=== PATIENT | female | born 1950 | race Two or more races ===

== ENCOUNTER 2018-04-07 07:49 | Outpatient (CLI) | payer OTHER ==
[~2018-04-07 07:49] MED LIST: AMLODIPINE BESYL5 MG PO; AVAPRO300 MG PO; CARVEDILOL3.125 MG; CATAFLAM50 MG PO; CLOPIDOGREL BIS75 MG PO; Coreg PO; FLONASE16 GM NS; HYDRALAZINE HCL25 MG PO; LIPITOR40 MG PO; TESSALON PERLE100 M1 PO; ZITHROMAX500 MG PO; ZYRTEC10 MG PO
== END 2018-04-07 08:07 | disposition home or self-care (01) ==
LOC: NUCLEAR 07:49
DX: I20.9 Angina pectoris, unspecified (principal)
CPT/HCPCS: 78452; 93017; A9500; J0153

== ENCOUNTER 2020-10-24 15:47 | Emergency (ER) | payer OTHER ==
[~2020-10-24] VITALS: Ht 152.4 cm; Wt 83.0 kg
[2020-10-24] MEDS ORDERED: PEPCID AC20 MG PO (20:32)
[2020-10-24] MEDS ORDERED: CARAFATE1 GM PO (20:32)
== END 2020-10-24 20:42 | disposition home or self-care (01) ==
LOC: ER 15:47
DX: K29.70 Gastritis, unspecified, without bleeding (principal)

== ENCOUNTER 2022-03-13 09:40 | Outpatient (CLI) | payer OTHER ==
[~2022-03-13 09:40] MED LIST changes: +CARAFATE1 GM PO; +PEPCID AC20 MG PO
== END 2022-03-13 10:05 | disposition home or self-care (01) ==
LOC: RAD 09:40
PROVIDERS: ATTEND Physical Medicine & Rehabilitation
DX: R07.81 Pleurodynia (principal); M25.532 Pain in left wrist; G89.21 Chronic pain due to trauma

== ENCOUNTER 2023-01-05 11:15 | Emergency (ER) | payer OTHER ==
[~2023-01-05] VITALS: Ht 160 cm; Wt 107.5 kg
[2023-01-05] MEDS ORDERED: DULCOLAX5 MG PO (17:49)
== END 2023-01-05 18:39 | disposition home or self-care (01) ==
LOC: ER 11:15
PROVIDERS: Emergency Medicine
DX: K59.00 Constipation, unspecified (principal); K62.89 Other specified diseases of anus and rectum; K57.30 Diverticulosis of large intestine without perforation or abscess without bleeding
CPT/HCPCS: 36415; 74177; 96365; 99284; J1885; Q9965

== ENCOUNTER 2023-06-20 12:10 | Emergency (ER) | payer OTHER ==
[~2023-06-20] VITALS: Ht 160 cm; Wt 76.7 kg
[~2023-06-20 12:10] MED LIST changes: +DULCOLAX5 MG PO
[2023-06-20] MEDS ORDERED: METFORMIN HCL500 M4 PO (12:41)
[2023-06-20] MEDS ORDERED: METHYLPREDNISOLONE SOD SUCC 125 MG VIAL IM STA (13:39)
[2023-06-20] MEDS ORDERED: DIPHENHYDRAMINE HCL 50 MG/ML VIAL 1ML IM STA (13:43)
== END 2023-06-20 13:59 | disposition home or self-care (01) ==
LOC: ER 12:10
DX: L50.9 Urticaria, unspecified (principal); E11.9 Type 2 diabetes mellitus without complications; Z79.84 Long term (current) use of oral hypoglycemic drugs